=== PATIENT | female | born 1960 | race Caucasian/White ===

== ENCOUNTER → 2022-11-27 | Outpatient (CLI) | payer OTHER ==
[~2022-11-27] MED LIST: AMIT75 PO; CYCL10 PO; IBUP600 PO; TRAM50 PO
[2022-12-01 15:11] LABS: HPV 16 Negative (Negative); HPV 18 Negative (Negative); HPV OTHER HR TYPES Negative (Negative)
== END ==
LOC: LAB SHORT 17:44
PROVIDERS: Advanced Practice Midwife
DX: Z01.419 Encounter for gynecological examination (general) (routine) without abnormal findings (principal)
CPT/HCPCS: 87624; G0145

== ENCOUNTER 2024-04-04 09:11 | Day surgery (SDC) | payer OTHER ==
[~2024-04-04] VITALS: Ht 162.6 cm; Wt 63.0 kg
[2024-04-04] VITALS (8 sets, daily range): BP systolic 117–152; BP diastolic 76–97
[~2024-04-04 09:11] MED LIST changes: +ALBU90OI INH; +ASPI81CH PO; +Chantix1 MG PO; +Crestor40 MG PO; +LASIX20 M2 PO; +LOSA50 PO; +METF500 PO; +POTA10T PO
[2024-04-04] MEDS ORDERED: Heparin Sodium 1000 Units/ML 10ML MDV ONE ×2 (09:12→09:56)
[2024-04-04] MEDS ORDERED: NS 500 ML IV ONE (09:12)
[2024-04-04] MEDS ORDERED: NS 1,000 ML IV ONE ×2 (09:12→09:56)
[2024-04-04] MEDS ORDERED: Nitroglycerin 2 MG/20 ML BTL ONE (09:53)
[2024-04-04] MEDS ORDERED: FentaNYL Citrate 50 MCG/ML 2 ML Injection ONE (10:00)
[2024-04-04] MEDS ORDERED: Midazolam HCl 1MG / ML 2ML Vial ONE (10:00)
[2024-04-04] MEDS ORDERED: CLOP75 PO (11:58)
--- NOTE | 2024-04-04 12:00 | NUR ---
NEW PRESCRIPTION CALLED INTO [facility] FOR PLAVIX 75MG PO DAILY, #30. NO REFILLS PER DR YADAV.
--- NOTE | 2024-04-04 13:20 | NUR ---
PT AMBULATES TO RESTROOM AND BACK WITHOUT DIFF. PT L FEMORAL SITE REMAINS C/D/I. NO BLEEDING OR HEMATOMA NOTED. VSS. PT VERBALIZES UNDERSTANDING WRITTEN AND VERBAL INSTRUCTIONS. DENIES QUESTIONS. PT IV DC'D. CATH INTACT. PRESSURE DSG APPLIED. PT DC TO HOME VIA WC BY FAMILY.
== END 2024-04-04 13:20 | disposition home or self-care (01) ==
LOC: MHTC 09:11
DX: E11.51 Type 2 diabetes mellitus with diabetic peripheral angiopathy without gangrene (principal); I70.223 Atherosclerosis of native arteries of extremities with rest pain, bilateral legs; I10 Essential (primary) hypertension; E78.5 Hyperlipidemia, unspecified; J44.9 Chronic obstructive pulmonary disease, unspecified; F17.210 Nicotine dependence, cigarettes, uncomplicated; Z88.2 Allergy status to sulfonamides; Z79.82 Long term (current) use of aspirin; Z79.899 Other long term (current) drug therapy
CPT/HCPCS: 37221; 37223; 37224; 75625; 75716; 75774; 76937; 99152; 99153; C1760; C1769; C1876; C1887; C1894; J1644; J2250; J3010; J7030; J7050; Q9967

== ENCOUNTER 2024-11-08 05:46 | Day surgery (SDC) | payer OTHER ==
[~2024-11-08 05:46] MED LIST changes: +ALBUTEROL INH; +AMITRIPTYLINE150 M6 PO; +ASPIR 8181 M1 PO; +ATORVASTATIN CA80 M1 PO; +BUDESONIDE INH; +CLOP75 PO; +COREG25 MG PO; +FURO20 PO; +Glucophage 500 mg PO; +KLOR-CON 1010 ME1 PO; +LOSARTAN POTAS100 M1 PO; +OMEP20ER PO; +Proventil HFA 90 mcg INH
[2024-11-08] MEDS ORDERED: Ondansetron HCl 2 MG / ML 2ML Vial ONE (06:21)
[2024-11-08] MEDS ORDERED: Dexamethasone Sod Phos 10 MG/ML 1ML VIAL ONE (06:21)
[2024-11-08] MEDS ORDERED: Ketorolac Tromethamine 30mg Vial ONE (06:21)
[2024-11-08] MEDS ORDERED: propofoL 0 ML IV ONE (06:21)
[2024-11-08] MEDS ORDERED: Sugammadex Sodium 200 MG/2ML SDV (100 MG/ML) ONE (06:21)
[2024-11-08] MEDS ORDERED: FentaNYL Citrate 50 MCG/ML 5 ML Injection ONE (06:21)
[2024-11-08] MEDS ORDERED: NS 250 ML IV SCH (07:00)
[2024-11-08 08:53] VITALS: BP 138/67
[2024-11-08 09:12] VITALS: BP 138/68
[2024-11-08 10:12] VITALS: BP 156/68
[2024-11-08 10:49] VITALS: BP 156/60
== END 2024-11-08 10:53 | disposition home or self-care (01) ==
LOC: ATC 05:46
DX: D64.9 Anemia, unspecified (principal); I12.0 Hypertensive chronic kidney disease with stage 5 chronic kidney disease or end stage renal disease; E11.22 Type 2 diabetes mellitus with diabetic chronic kidney disease; N18.6 End stage renal disease; I25.10 Atherosclerotic heart disease of native coronary artery without angina pectoris; J44.9 Chronic obstructive pulmonary disease, unspecified; E78.5 Hyperlipidemia, unspecified; K21.9 Gastro-esophageal reflux disease without esophagitis; F17.210 Nicotine dependence, cigarettes, uncomplicated; Z88.0 Allergy status to penicillin; Z88.2 Allergy status to sulfonamides; Z79.82 Long term (current) use of aspirin; Z79.02 Long term (current) use of antithrombotics/antiplatelets; Z79.84 Long term (current) use of oral hypoglycemic drugs; Z79.899 Other long term (current) drug therapy
CPT/HCPCS: 36415; 36430; 86850; 86900; 86901; 86923; J1100; J1885; J2405; J2704; J3010; J7050; P9016

== ENCOUNTER 2024-11-10 03:44 | Emergency (ER) | payer OTHER ==
[~2024-11-10] VITALS: Ht 162.6 cm; Wt 58.1 kg
[2024-11-10 04:05] LABS: BASOPHILS ABSOLUTE AUTO 0.05 K/mm3 (0.00-0.23); BASOPHILS PERCENT AUTO 1 % (0-2); EOSINOPHILS ABSOLUTE AUTO 0.07 K/mm3 (0.00-0.68); EOSINOPHILS PERCENT AUTO 1 % (0-6); Hematocrit 24.2 % (33.0-51.0); Hemoglobin 8.2 g/dL (11.5-16.0); IMMATURE GRAN ABSOLUTE AUTO 0.03 K/mm3 (0.00-0.10); IMMATURE GRAN PERCENT AUTO 0 % (0-1); LYMPHOCYTES ABSOLUTE AUTO 0.85 K/mm3 (0.84-5.20); LYMPHOCYTES PERCENT AUTO 11 % (21-46); MONOCYTES ABSOLUTE AUTO 0.58 K/mm3 (0.16-1.47); MONOCYTES PERCENT AUTO 8 % (4-13); Mean Corpuscular HGB 30.5 pg (26.0-34.0); Mean Corpuscular HGB Conc 33.9 g/dL (31.5-36.5); Mean Corpuscular Volume 90 fL (80-100); Mean Platelet Volume 10.2 fL (9.1-12.4); NEUTROPHILS ABSOLUTE AUTO 6.09 K/mm3 (1.96-9.15); NEUTROPHILS PERCENT AUTO 79 % (41-73); Platelet Count 114 K/mm3 (150-400); RDW Coefficient Variation 13.3 % (11.7-14.2); RDW Standard Deviation 43.8 fL (35.1-46.3); Red Blood Cell Count 2.69 M/mm3 (3.80-5.20); White Blood Cell Count 7.67 K/mm3 (4.00-11.30)
[2024-11-10 04:22] LABS: Alanine Aminotransfer (ALT/SGP 55 U/L (12-78); Albumin, Blood 2.5 g/dL (3.4-5.0); Albumin/Globulin Ratio 0.6 (0.8-1.8); Alk Phos 163 U/L (50-136); Anion Gap 10 mmol/L (3-11); Aspartate Aminotrans (AST/SGOT 25 U/L (12-37); Bilirubin, Total 0.6 mg/dL (0.1-1.0); Blood Urea Nitrogen 23 mg/dL (8-24); CO2, Blood 29 mmol/L (21-32); Calcium, Blood 8.9 mg/dL (8.5-10.1); Chloride, Blood 97 mmol/L (98-108); Creatinine, Blood 3.29 mg/dL (0.40-1.00); Globulin, Blood 4.4 g/dL (2.2-4.0); Glomerular Filtration Rate 15 (60-); Glucose, Blood 408 mg/dL (70-99); Potassium, Blood 3.6 mmol/L (3.5-5.5); Sodium, Blood 132 mmol/L (136-145); Total Protein, Blood 6.9 g/dL (6.4-8.2)
[2024-11-10] MEDS ORDERED: Metoclopramide HCl 5MG / ML 2ML Vial IV ONE (04:25)
[2024-11-10] MEDS ORDERED: Mag Hydrox/AL Hydrox/Simeth 30 ML UDC PO ONE (04:25)
[2024-11-10] MEDS ORDERED: FentaNYL Citrate 50 MCG/ML 2 ML Injection IV PRN (04:25)
[2024-11-10 05:33] LABS: CORONAVIRUS COVID-19 AG Negative (NEGATIVE); INFLUENZA A AG Negative (NEGATIVE); INFLUENZA B AG Negative (NEGATIVE)
[2024-11-10] MEDS ORDERED: ALMACONE SUSPE355 ML PO (06:08)
[2024-11-10 06:30] VITALS: BP 154/78
[2024-11-15] MEDS ORDERED: Calcium Acetat667 MG PO (15:03)
== END 2024-11-10 06:39 | disposition home or self-care (01) ==
LOC: ER 03:44
PROVIDERS: Emergency Medicine
DX: K21.9 Gastro-esophageal reflux disease without esophagitis (principal); I10 Essential (primary) hypertension; E11.51 Type 2 diabetes mellitus with diabetic peripheral angiopathy without gangrene; E78.5 Hyperlipidemia, unspecified; J44.9 Chronic obstructive pulmonary disease, unspecified; Z88.0 Allergy status to penicillin; Z88.2 Allergy status to sulfonamides; Z79.899 Other long term (current) drug therapy
CPT/HCPCS: 71046; 80053; 83690; 84484; 85025; 87428-QW; 93005; 93010; 96374; 96375; 99285-25; A9270; J2765; J3010

== ENCOUNTER 2024-11-20 19:37 | Inpatient (IN) | payer OTHER ==
[~2024-11-20] VITALS: Ht 162.6 cm; Wt 65.5 kg
[~2024-11-20 19:37] MED LIST changes: +ALMACONE SUSPE355 ML PO; +BASAGLAR K100 UNIT/4 SC; +Calcium Acetat667 MG PO; +HUMULIN R500 UNIT/2 SC; +PANTOPRAZOLE SO40 M1 PO
[2024-11-20 20:33] LABS: Glucose, Blood 924 mg/dL (70-99)
[2024-11-20 20:59] LABS: BASOPHILS ABSOLUTE AUTO 0.04 K/mm3 (0.00-0.23); BASOPHILS PERCENT AUTO 0 % (0-2); EOSINOPHILS ABSOLUTE AUTO 0.03 K/mm3 (0.00-0.68); EOSINOPHILS PERCENT AUTO 0 % (0-6); Hemoglobin 8.4 g/dL (11.5-16.0); IMMATURE GRAN ABSOLUTE AUTO 0.17 K/mm3 (0.00-0.10); IMMATURE GRAN PERCENT AUTO 2 % (0-1); LYMPHOCYTES ABSOLUTE AUTO 0.68 K/mm3 (0.84-5.20); LYMPHOCYTES PERCENT AUTO 7 % (21-46); MONOCYTES ABSOLUTE AUTO 0.39 K/mm3 (0.16-1.47); MONOCYTES PERCENT AUTO 4 % (4-13); Mean Corpuscular HGB 29.7 pg (26.0-34.0); Mean Corpuscular HGB Conc 32.3 g/dL (31.5-36.5); Mean Corpuscular Volume 92 fL (80-100); Mean Platelet Volume 12.7 fL (9.1-12.4); NEUTROPHILS ABSOLUTE AUTO 8.67 K/mm3 (1.96-9.15); NEUTROPHILS PERCENT AUTO 87 % (41-73); Platelet Count 72 K/mm3 (150-400); RDW Coefficient Variation 14.5 % (11.7-14.2); Red Blood Cell Count 2.83 M/mm3 (3.80-5.20); White Blood Cell Count 9.98 K/mm3 (4.00-11.30)
[2024-11-20 21:06] LABS: Magnesium, Blood 1.5 mg/dL (1.6-2.4)
[2024-11-20 21:17] LABS: CORONAVIRUS COVID-19 AG Negative (NEGATIVE); INFLUENZA A AG Negative (NEGATIVE); INFLUENZA B AG Negative (NEGATIVE)
[2024-11-20 21:27] LABS: Alanine Aminotransfer (ALT/SGP 42 U/L (12-78); Albumin, Blood 1.8 g/dL (3.4-5.0); Albumin/Globulin Ratio 0.4 (0.8-1.8); Alk Phos 203 U/L (50-136); Anion Gap 19 mmol/L (3-11); Aspartate Aminotrans (AST/SGOT 24 U/L (12-37); Beta-hydroxybutyrate 20.4 mg/dL (0.2-2.8); Bilirubin, Total 0.5 mg/dL (0.1-1.0); Blood Urea Nitrogen 37 mg/dL (8-24); Bun/Creatinine Ratio 16.7 (12.0-20.0); CO2, Blood 20 mmol/L (21-32); Chloride, Blood 87 mmol/L (98-108); Creatinine, Blood 2.22 mg/dL (0.40-1.00); Globulin, Blood 4.6 g/dL (2.2-4.0); Glomerular Filtration Rate 24 (60-); Potassium, Blood 3.6 mmol/L (3.5-5.5); Sodium, Blood 122 mmol/L (136-145); Total Protein, Blood 6.4 g/dL (6.4-8.2)
[2024-11-20 21:34] LABS: Source, Urine Clean Catch
[2024-11-20 21:36] LABS: Bilirubin, Urine Neg (Neg); Blood, Urine 1+ (Neg); Glucose Qualitative, Urine 4+ (Neg); Ketones, Urine 1+ (Neg); Leukocyte Esterase, Urine Neg (Neg); Nitrite, Urine Neg (Neg); Protein, Urine 2+ (Neg); Urobilinogen, Urine NORM (Normal); pH, Urine 6.5 (5.0-8.0)
[2024-11-20 21:47] LABS: Appearance, Urine Clear (Clear); Bacteria Not Seen /hpf; Color, Urine Yellow (P-Yellow); Red Blood Cells, Urine 0-2 /hpf (0-2); Squamous Epithelial Cells Not Seen /hpf (Few); White Blood Cells, Urine 0-2 /hpf (0-5)
[2024-11-20] MEDS ORDERED: METF500 (21:49)
[2024-11-20] MEDS ORDERED: FUROSEMIDE20 MG PO (21:50)
[2024-11-20] MEDS ORDERED: LOSA25 PO (21:50)
[2024-11-20] MEDS ORDERED: Insulin Regular 100 Unit/ML 1ML Dose IV ONE (21:55)
[2024-11-20 22:08] LABS: Base Excess Venous -6.4 mmol/L; Bicarbonate Venous 19.7 mmol/L (24.0-30.0); pH Blood Venous 7.42 (7.34-7.37)
[2024-11-20] MEDS ORDERED: Lactated Ringer's 250 ML IV SCH (22:20)
[2024-11-20 23:41] LABS: Bun/Creatinine Ratio 16.2 (12.0-20.0); Calcium, Blood 8.1 mg/dL (8.5-10.1); Creatinine, Blood 2.28 mg/dL (0.40-1.00); Potassium, Blood 3.3 mmol/L (3.5-5.5)
[2024-11-20] MEDS ORDERED: Insulin Human Regular 100 UNIT in NS 100 ML IV SCH (23:45)
[2024-11-20] MEDS ORDERED: Potassium Chloride 40 MEQ in NS 250 ML IV ONE (23:45)
[2024-11-20] MEDS ORDERED: NS KCL 40 mEq 1,000 ML IV SCH (23:50)
[2024-11-21] VITALS (48 sets, daily range): BP systolic 70–136; BP diastolic 51–99
[2024-11-21] MEDS ORDERED: NS 1,000 ML IV SCH (00:10)
[2024-11-21] MEDS ORDERED: Magnesium Sulf 2 GM/Water 50ML 50 ML IV ONE (00:15)
[2024-11-21] MEDS ORDERED: FLU VACC TS2024-25(6MOS UP)/PF 45 MCG/0.5 ML SYRINGE IM ONE (00:20)
[2024-11-21] MEDS ORDERED: Lactated Ringer's 250 ML IV SCH (00:20)
[2024-11-21] MEDS ORDERED: Ondansetron HCl 2 MG / ML 2ML Vial IV PRN (00:20)
[2024-11-21] MEDS ORDERED: Acetaminophen 325 MG TABLET PO PRN (00:20)
[2024-11-21] MEDS ORDERED: Dextrose 50% 50 ML Syringe IV PRN (00:25)
[2024-11-21] MEDS ORDERED: Dextrose 50% 50 ML Vial IV PRN (00:35)
[2024-11-21] MEDS ORDERED: Lactated Ringer's 1,000 ML IV SCH ×2 (01:00→01:45)
[2024-11-21 02:37] LABS: Magnesium, Blood 1.7 mg/dL (1.6-2.4)
[2024-11-21 02:40] LABS: Calcium, Blood 8.2 mg/dL (8.5-10.1); Creatinine, Blood 2.23 mg/dL (0.40-1.00); Phosphorus, Blood 2.8 mg/dL (2.5-4.9); Potassium, Blood 3.5 mmol/L (3.5-5.5)
[2024-11-21] MEDS ORDERED: Insulin Human Regular 100 UNIT in NS 100 ML IV SCH (03:05)
--- NOTE | 2024-11-21 03:28 | NUR ---
ARRIVAL TO ICU PT ARRIVED TO ICU 2 AT 0145 VIA ED BED AND TRANSFERED OVER TO ICU BED VIA SLIDE SHEET. SHE IS BEING ADMITTED FOR DKA AND TO BE PLACED ON AN INSULIN GTT ONCE POTASSIUM IS IMPROVED. SHE IS A/O X1, SELF ONLY; OPENS EYES TO VERBAL STIMULATION AND FOLLOWS DIRECTIONS BUT ONLY ANSWERS Y/N QUESTIONS OCCATIONALLY; SLEEPS WHEN NOT STIMULATED. SPO2 >95% ON RA. AFEBRILE. HR 100-105. SBP 110-120. STRAIGHT CATH COMPLETED IN ED. PERMACATH NOTED TO RT CHEST WALL; UNKNOWN WHEN LAST DIALYSIS WAS. POTASSIUM AND MAG INFUSING UPON ARRIVAL TO ICU. CALL MADE TO DR LANGE REGARDING REPEAT LABS, NEW ORDERS PROVIDED TO START INSULIN GTT. GTT STARTED AT 0320. PLAN TO RESTART LR AT 75ML/HR AFTER KCL COMPLETED. SEE ADMISSION ASSESSMENT FOR FULL ASSESSMENT.
[2024-11-21 04:59] LABS: Glucose, Blood 751 mg/dL (70-99)
[2024-11-21] MEDS ORDERED: Pantoprazole Sodium 40 MG Tab PO SCH (06:00)
[2024-11-21 06:03] LABS: Glucose, Blood 703 mg/dL (70-99)
--- NOTE | 2024-11-21 06:37 | NUR ---
END OF SHIFT SUMMARY INSULIN GTT STARTED AND GLUCOSE IS SLOWLY DECREASING; INSULIN INFUSING AT 6UNITS/HR. SHE IS STARTING TO BECOME MORE ALERT AND ASKING QUESTIONS LIKE "HOW DID I GET HERE?" AND "I HAVE DIALYSIS TODAY"; SHE STATES THAT DIALYSIS IS TUE/DEWAYNE/SAT; SHE CONT TO BE UNCLEAR REGARDING THE EVENTS THAT BROUGHT HER TO THE HOSPITAL. SPO2 >95% ON RA. AFEBRILE. HR 90-100. SBP 100-110. TOLERATING SIPTS OF WATER, NO C/O NAUSEA. BLADDER SCAN SHOWED >999+, STRAIGHT CATH PERFORMED AND DRAINING A LARGE AMOUNT OF URINE. LR INFUSING AT 75ML/HR. WILL REPORT TO AM RN WHEN AVAILABLE.
[2024-11-21 07:12] LABS: Bun/Creatinine Ratio 17.1 (12.0-20.0); Calcium, Blood 8.3 mg/dL (8.5-10.1); Creatinine, Blood 2.22 mg/dL (0.40-1.00); Potassium, Blood 3.6 mmol/L (3.5-5.5)
[2024-11-21 07:14] LABS: Glucose, Blood 614 mg/dL (70-99)
[2024-11-21 07:15] LABS: Magnesium, Blood 1.9 mg/dL (1.6-2.4); Phosphorus, Blood 1.8 mg/dL (2.5-4.9)
[2024-11-21] MEDS ORDERED: Carvedilol 6.25 MG Tab PO SCH (08:00)
[2024-11-21 08:01] LABS: Glucose, Blood 572 mg/dL (70-99)
[2024-11-21] MEDS ORDERED: Potassium Chloride 20 MEQ in NS 90 ML IV ONE (08:25)
--- NOTE | 2024-11-21 08:25 | NUR ---
AM NOTE... ASSUMED CARE OF PT AT 0700, PT IS A&O TO SELF AND PLACE, PT IS ABLE TO FOLLOW SIMPLE COMMANDS BUT FALLS ASLEEP QUICKLY WITH NO STIMULI. PT IS ON RA WITH O2 SATS>95% L/S CLEAR T/O. PT IS IN SR W/FIRST DEGREE IN THE 80'S-90'S BP IS SOFT WITH SPBs 90'S-80'S MAPS>65. PT HAS 1+ EDEMA TO HER RLE AND TRACE TO HER LLE. PULSES ARE +2 IN ALL EXTREMITIES. PT IS ON AN INSULIN GTT RUNNING AT 6U/HR LAST GLUCOSE WAS 572. LR RUNNING AT 75MLS/HR.
[2024-11-21] MEDS ORDERED: Potassium Chloride 40 MEQ in NS 250 ML IV ONE (08:30)
[2024-11-21] MEDS ORDERED: Magnesium Sulf 2 GM/Water 50ML 50 ML IV STA (08:34)
[2024-11-21] MEDS ORDERED: Clopidogrel Bisulfate 75 MG Tab PO SCH (09:00)
[2024-11-21] MEDS ORDERED: Aspirin 81 MG Chew PO SCH (09:00)
[2024-11-21] MEDS ORDERED: Rosuvastatin Calcium 10 MG Tab PO SCH (09:00)
[2024-11-21] MEDS ORDERED: Heparin Sodium 5000 Units/ML 1ML MDV SC SCH (09:00)
[2024-11-21] MEDS ORDERED: Albumin (Human) 25gm/100ml 100 ML IV SCH (10:15)
[2024-11-21] MEDS ORDERED: D5W-1/2NS 1,000 ML IV SCH (12:00)
[2024-11-21 13:00] LABS: Bun/Creatinine Ratio 14.9 (12.0-20.0); Calcium, Blood 9.2 mg/dL (8.5-10.1); Creatinine, Blood 1.14 mg/dL (0.40-1.00); Potassium, Blood 3.7 mmol/L (3.5-5.5)
[2024-11-21] MEDS ORDERED: Insulin Glargine-Yfgn 100 Unit/mL 3 ML SYR SC ONE (15:15)
[2024-11-21] MEDS ORDERED: Darbepoetin Alfa in Polysorbat 25 MCG/0.42 ML Syringe SC ONE (16:00)
[2024-11-21 16:08] LABS: Bun/Creatinine Ratio 13.7 (12.0-20.0); Calcium, Blood 8.9 mg/dL (8.5-10.1); Creatinine, Blood 1.39 mg/dL (0.40-1.00); Potassium, Blood 3.8 mmol/L (3.5-5.5)
[2024-11-21] MEDS ORDERED: Insulin Human Lispro 100 Units/ML 3ML Syringe SC SCH (16:30)
--- NOTE | 2024-11-21 17:39 | NUR ---
SHIFT SUMMARY... PT'S MENTATION HAS IMPROVED T/O THIS SHIFT. SHE STILL HAS MOMENTS OF CONFUSION BUT IS ABLE TO ANSWER ALL ORIENTATION QUESTIONS. PT HAD DIALYSIS THIS AM AND TOLERATED IT WELL. VS HAVE BEEN STABLE T/O THIS SHIFT BP CONTINUES TO BE SOFT BUT MAPS>65. THE INSULIN GTT WAS STOPPED AT 1730, LONG ACTING AND SUB Q WERE GIVEN PER ORDERS. PROVIDER WOULD LIKE TO CONTINUE TO CHECK HOURLY CBGs TO ENSURE GLUCOSE DOES NOT GET OUT OF CONTROL T/O THE NIGHT. ALL FULIDS STOPPED. PT'S WEINER IS PATENT AND DRAINING TO GRAVITY URINARY OUTPUT HAS DECREASED SINCE DIALYSIS. NO BM THIS SHIFT. WILL REPORT TO ONCOMING RN.
--- NOTE | 2024-11-21 17:43 | NUR ---
FAMILY PHONE NUMBERS... SON BRUNA (ESTELITA): [phone] SON GODFREY: [phone]
[2024-11-21 20:50] LABS: Bun/Creatinine Ratio 13.2 (12.0-20.0); Calcium, Blood 8.7 mg/dL (8.5-10.1); Creatinine, Blood 1.51 mg/dL (0.40-1.00); Potassium, Blood 4.2 mmol/L (3.5-5.5)
[2024-11-21] MEDS ORDERED: Insulin Human Lispro 100 Units/ML 3ML Syringe SC ONE (22:25)
[2024-11-22] VITALS (30 sets, daily range): BP systolic 77–148; BP diastolic 49–102
[2024-11-22 00:34] LABS: Bun/Creatinine Ratio 12.8 (12.0-20.0); Calcium, Blood 8.3 mg/dL (8.5-10.1); Creatinine, Blood 1.56 mg/dL (0.40-1.00); Potassium, Blood 3.9 mmol/L (3.5-5.5)
[2024-11-22] MEDS ORDERED: Insulin Glargine-Yfgn 100 Unit/mL 3 ML SYR SC SCH ×3 (00:55→21:00)
[2024-11-22 03:53] LABS: Hematocrit 24.2 % (33.0-51.0); Hemoglobin 8.2 g/dL (11.5-16.0)
[2024-11-22 04:15] LABS: Albumin, Blood 2.5 g/dL (3.4-5.0); Anion Gap 12 mmol/L (3-11); Blood Urea Nitrogen 21 mg/dL (8-24); Bun/Creatinine Ratio 12.7 (12.0-20.0); CO2, Blood 26 mmol/L (21-32); Calcium, Blood 8.5 mg/dL (8.5-10.1); Chloride, Blood 96 mmol/L (98-108); Creatinine, Blood 1.66 mg/dL (0.40-1.00); Glomerular Filtration Rate 34 (60-); Glucose, Blood 277 mg/dL (70-99); Magnesium, Blood 1.7 mg/dL (1.6-2.4); Phosphorus, Blood 1.5 mg/dL (2.5-4.9); Potassium, Blood 4.3 mmol/L (3.5-5.5); Sodium, Blood 130 mmol/L (136-145)
--- NOTE | 2024-11-22 06:03 | NUR ---
END OF SHIFT SUMMARY PT WAS ABLE TO SLEEP A BETTER PART OF THE NIGHT. GLUCOSE CHALLENGING TO MANAGE; FIRST CALL MADE TO HOSPITALIST GEMA REGARDING GLUCOSE 313, ONE TIME ORDER TO GIVE ADDITIONAL DOSE OF HUMALOG; SECOND CALL MADE TO DR LANGE REGARDING GLUCOSE OF 312 AFTER PREVIOUS INSULIN GIVEN, ONE TIME ADDITIONAL DOSE OF LONG ACTING INSULIN GIVEN. SHE IS A/O X3; AT TIMES CONFUSED REGARDING WHAT HAPPENED THAT LEAD HER TO BE HOSPITALIZED. C/O MILD BACK PAIN. AFEBRILE. SPO2 >98% ON RA. HR 100-110. SBP 110-130. TOLERATING PO INTAKE WELL. WEINER IN PLACE AND DRAINING TO GRAVITY. PERMACATH TO RT CHEST WALL DRESSING C/D/I. WILL REPORT TO AM RN WHEN AVAILABLE.
[2024-11-22] MEDS ORDERED: Sodium Phosphate 20 MM in Dextrose 5% 500 ML IV ONE (07:15)
--- NOTE | 2024-11-22 07:40 | NUR ---
Peytona of care: Resting in bed with no complaints. Neuro intact. In ST at 105 with BP 133/55 (79). Oxygen saturation 100% on room air. No plans for HD today per Dr. Olsen. Ruddy cath secure & patent, in place for retention. PIV x2 & R SC permcath. Will continue to monitor.
[2024-11-22 08:24] LABS: Bun/Creatinine Ratio 11.9 (12.0-20.0); Calcium, Blood 8.2 mg/dL (8.5-10.1); Creatinine, Blood 1.68 mg/dL (0.40-1.00)
[2024-11-22] MEDS ORDERED: TraMADol HCl 50 MG Tab PO PRN (09:30)
[2024-11-22] MEDS ORDERED: Insulin Human Lispro 100 Units/ML 3ML Syringe SC SCH (11:30)
[2024-11-22 11:54] LABS: Bun/Creatinine Ratio 12.7 (12.0-20.0); Creatinine, Blood 1.73 mg/dL (0.40-1.00)
[2024-11-22] MEDS ORDERED: Dextrose 50% 50 ML Vial IV PRN (12:15)
[2024-11-22] MEDS ORDERED: Insulin Regular 100 UNIT/ML 10ML Vial IV ONE (12:15)
[2024-11-22] MEDS ORDERED: Insulin Human Regular 100 UNIT in NS 100 ML IV SCH (12:20)
[2024-11-22] MEDS ORDERED: Dextrose 10% 500 ML IV SCH (12:30)
[2024-11-22 12:56] LABS: Base Excess Venous 1.3 mmol/L; Bicarbonate Venous 25.2 mmol/L (24.0-30.0); PCO2 Venous 43.3 mmHg (38-42); pH Blood Venous 7.39 (7.34-7.37)
[2024-11-22 13:37] LABS: Bun/Creatinine Ratio 12.7 (12.0-20.0); Calcium, Blood 7.9 mg/dL (8.5-10.1); Creatinine, Blood 1.81 mg/dL (0.40-1.00); Magnesium, Blood 1.6 mg/dL (1.6-2.4); Phosphorus, Blood 3.7 mg/dL (2.5-4.9); Potassium, Blood 3.7 mmol/L (3.5-5.5)
--- NOTE | 2024-11-22 13:40 | NUR ---
Patient is sitting on a chair and eating lunch. She tells me earl few minutes during my visit that she is "so confused." She is able to discuss most any topic but she is slow to respond. She tells me about her 5 grown children. All but one son live in other states. She is talks about the good care she has received in the ICU and she thinks that she was in the hospital recently for another reason and had good care then as well. She is easily encouraged and appreciates kind words and blessings. Spiritual care will remain available.
[2024-11-22 17:12] LABS: Bun/Creatinine Ratio 12.6 (12.0-20.0); Calcium, Blood 7.8 mg/dL (8.5-10.1); Creatinine, Blood 1.91 mg/dL (0.40-1.00); Magnesium, Blood 1.7 mg/dL (1.6-2.4); Phosphorus, Blood 2.7 mg/dL (2.5-4.9); Potassium, Blood 3.6 mmol/L (3.5-5.5)
--- NOTE | 2024-11-22 17:37 | NUR ---
Shift summary: Oriented x3 but unsure of situation. Drowsy & slept much of afternoon. Awake & alert again for dinner. OOB to chair for a couple of hours -- very weak returning to bed, required two person assist. NSR in the 80s with 1st degree AVB. Blood pressures low after receiving this morning's dose of coreg - discussed with Dr. Fischer - evening dose of coreg held but blood pressures still soft. O2 sats stable on room air. Insulin gtt restarted early afternoon due to worsening labs... currently running at 1 unit/hr. D10 gtt also started - running at 25 mL/hr. PIV x2 in place. Fox discontinued around 10:30, most recent bladder scan at 1700 with only 131 cc in bladder, will continue to monitor. Encouraging PO intake & range of motion. Hot Mix Operator following. Notified Dr. Fischer of most recent serum potassium of 3.6 - he states he will order some replacement. Will continue q1h blood glucose checks & follow insulin gtt protocol. Son, daughter, & mother all updated today on plan of care.
[2024-11-22] MEDS ORDERED: Potassium Chloride 20 MEQ/15 ML UDC PO ONE (18:05)
[2024-11-22] MEDS ORDERED: Lactated Ringer's 1,000 ML IV SCH (18:05)
[2024-11-22 20:43] LABS: Bun/Creatinine Ratio 12.9 (12.0-20.0); Calcium, Blood 8.3 mg/dL (8.5-10.1); Creatinine, Blood 2.02 mg/dL (0.40-1.00); Magnesium, Blood 1.7 mg/dL (1.6-2.4); Phosphorus, Blood 2.8 mg/dL (2.5-4.9); Potassium, Blood 4.8 mmol/L (3.5-5.5)
--- NOTE | 2024-11-22 22:27 | NUR ---
ASSUMED CARE AT 1900 PT LAYING IN BED WATCHING TV AT SHIFT CHANGE. SHE IS MORE ALERT THAN PREVIOUS DAY; ORIENTED X3, NOT TO SITUATION; GENERALIZED WEAKNESS NOTED. SPO2 >97% ON RA. AFEBRILE. HR 90'S. SBP 90'S; MAP 60-65. TOLERATING PO INTAKE. WEINER REMOVED DURING DAY SHIFT; NO URINE OUTPUT YET. PERMACATH TO RT CHEST WALL DRESSING C/D/I. INSULIN INFUSING AT 1UNIT/HR; LR INFUSING AT 75ML/HR; D10 INFUSING AT 25ML/HR. SEE SHIFT ASSESSMENT FOR FULL ASSESSMENT.
[2024-11-23] VITALS (40 sets, daily range): BP systolic 75–123; BP diastolic 50–87
[2024-11-23 01:04] LABS: Bun/Creatinine Ratio 13.6 (12.0-20.0); Calcium, Blood 8.2 mg/dL (8.5-10.1); Creatinine, Blood 1.99 mg/dL (0.40-1.00); Magnesium, Blood 1.5 mg/dL (1.6-2.4); Phosphorus, Blood 2.6 mg/dL (2.5-4.9); Potassium, Blood 4.3 mmol/L (3.5-5.5)
[2024-11-23 04:56] LABS: Hematocrit 21.2 % (33.0-51.0); Hemoglobin 7.3 g/dL (11.5-16.0)
[2024-11-23 05:42] LABS: Anion Gap 14 mmol/L (3-11); Blood Urea Nitrogen 26 mg/dL (8-24); Bun/Creatinine Ratio 13.8 (12.0-20.0); CO2, Blood 23 mmol/L (21-32); Chloride, Blood 93 mmol/L (98-108); Creatinine, Blood 1.88 mg/dL (0.40-1.00); Glomerular Filtration Rate 30 (60-); Glucose, Blood 296 mg/dL (70-99); Magnesium, Blood 1.5 mg/dL (1.6-2.4); Phosphorus, Blood 2.6 mg/dL (2.5-4.9); Potassium, Blood 4.4 mmol/L (3.5-5.5); Sodium, Blood 126 mmol/L (136-145)
[2024-11-23] MEDS ORDERED: Mag Sulfate 1 GM/D5% 100ML 100 ML IV STA (05:54)
--- NOTE | 2024-11-23 06:47 | NUR ---
END OF SHIFT SUMMARY NO ACUTE EVENTS OVERNIGHT; SHE WAS ABLE TO SLEEP FOR A FEW HOURS. SHE CONT TO BE A/O X3. ONE DOSE OF ULTRAM GIVEN FOR BACK PAIN. AFEBRILE. SPO2 >97% ON RA. HR 90'S. SBP 80-100. BLADDER SCAN COMPLETED AND SHOWED 293ML. INSULIN INFUSING AT 1.5UNITS/HR; D10 INFUSING AT 25ML/HR; LR INFUSING AT 75ML/HR. PERMACATH TO RT CHEST WALL DRESSING C/D/I. WILL REPORT TO AM RN WHEN AVAILABLE.
--- NOTE | 2024-11-23 07:56 | NUR ---
Karnes of care: Oriented to person, place, time. Unsure of the reason why she is in the hospital. Able to transfer to the chair with two-person assist -- very weak. In NSR in the 90s. SBP 90-100. Oxygen saturation mid-high 90s on room air. Poor appetite. Has not voided since yesterday -- will continue to bladder scan per protocol. PIV x2 in place. Insulin gtt @ 1.5 units/hr, LR @ 75 cc/hr, & D10 @ 25 cc/hr infusing. Will continue to monitor.
[2024-11-23 08:32] LABS: Hematocrit 21.1 % (33.0-51.0); Hemoglobin 7.2 g/dL (11.5-16.0); Mean Corpuscular HGB 29.8 pg (26.0-34.0); Mean Corpuscular HGB Conc 34.1 g/dL (31.5-36.5); Mean Platelet Volume 12.6 fL (9.1-12.4); Platelet Count 86 K/mm3 (150-400); RDW Standard Deviation 47.9 fL (35.1-46.3); Red Blood Cell Count 2.42 M/mm3 (3.80-5.20); White Blood Cell Count 13.28 K/mm3 (4.00-11.30)
[2024-11-23 08:47] LABS: Mean Corpuscular Volume 87 fL (80-100)
[2024-11-23 08:52] LABS: Bun/Creatinine Ratio 17.2 (12.0-20.0); Calcium, Blood 8.1 mg/dL (8.5-10.1); Creatinine, Blood 1.57 mg/dL (0.40-1.00); Potassium, Blood 4.4 mmol/L (3.5-5.5)
[2024-11-23] MEDS ORDERED: Furosemide 40 MG Tab PO SCH (09:00)
[2024-11-23 10:05] LABS: BAND PERCENT MAN 8 % (0-8); BASOPHILS PERCENT MAN 0 % (0-2); EOSINOPHILS PERCENT MAN 0 % (0-6); LYMPHOCYTES ABSOLUTE MAN 1.19 K/mm3 (0.84-5.20); LYMPHOCYTES PERCENT MAN 9 % (21-46); MONOCYTES ABSOLUTE MAN 0.39 K/mm3 (0.16-1.47); MONOCYTES PERCENT MAN 3 % (4-13); MYELOCYTE ABSOLUTE MAN 0.13 K/mm3 (0.00-0.00); MYELOCYTE PERCENT MAN 1 % (0-0); NEUTROPHILS ABSOLUTE MAN 11.55 K/mm3 (1.96-9.15); SEG NEUTROPHILS PERCENT MAN 79 % (41-73); TOTAL CELLS COUNTED 100
[2024-11-23 11:58] LABS: Source, Urine Straight Cath
[2024-11-23 12:04] LABS: Appearance, Urine Hazy (Clear); Bilirubin, Urine Neg (Neg); Blood, Urine 1+ (Neg); Color, Urine Yellow (P-Yellow); Glucose Qualitative, Urine Neg (Neg); Ketones, Urine Neg (Neg); Leukocyte Esterase, Urine 1+ (Neg); Nitrite, Urine Pos (Neg); Protein, Urine 3+ (Neg); Urobilinogen, Urine 1+ (Normal); pH, Urine 6.5 (5.0-8.0)
[2024-11-23 12:49] LABS: Red Blood Cells, Urine 0-2 /hpf (0-2)
[2024-11-23 12:50] LABS: Bacteria Many /hpf; Squamous Epithelial Cells Rare /hpf (Few)
[2024-11-23 12:51] LABS: Amorphous Light (0-Heavy)
[2024-11-23 13:04] LABS: Bun/Creatinine Ratio 12.7 (12.0-20.0); Calcium, Blood 8.1 mg/dL (8.5-10.1); Creatinine, Blood 2.2 mg/dL (0.40-1.00); Magnesium, Blood 1.8 mg/dL (1.6-2.4); Phosphorus, Blood 2.7 mg/dL (2.5-4.9); Potassium, Blood 4.2 mmol/L (3.5-5.5)
--- NOTE | 2024-11-23 14:24 | NUR ---
Notified Dr. Fischer of pt's sustained hypotension with MAPs below 65. Also discussed most recent lab results including urinalysis. Orders for 2.5 mg PO midodrine x1 & he states he will place antibiotic orders shortly.
[2024-11-23] MEDS ORDERED: Midodrine 2.5 MG Tab PO ONE (14:25)
[2024-11-23] MEDS ORDERED: CefTRIAXone Sodium 1,000 MG in NS 100 ML IV SCH (15:00)
--- NOTE | 2024-11-23 17:20 | NUR ---
Notified Dr. Fischer of pt's continued hypotension. He is en route.
[2024-11-23 17:22] LABS: Bun/Creatinine Ratio 13.9 (12.0-20.0); Calcium, Blood 7.9 mg/dL (8.5-10.1); Creatinine, Blood 2.31 mg/dL (0.40-1.00); Magnesium, Blood 1.8 mg/dL (1.6-2.4); Phosphorus, Blood 3.1 mg/dL (2.5-4.9); Potassium, Blood 4.3 mmol/L (3.5-5.5)
--- NOTE | 2024-11-23 17:50 | NUR ---
Shift summary: Less drowsy this afternoon. Oriented but states she feels confused & "foggy headed". OOB to chair with two person assist - PT/OT kathleen completed. In NSR with 1st degree AVB. Blood pressures low throughout the day - one dose of PO midodrine given with no effect - norepi gtt ordered if MAP does not sustain above 65. On room air with stable O2 sats. Straight cath x1 due to retention. UA sent which is indicative of UTI - rocephin started. Continues to have poor appetite & minimal PO intake despite encouragement. PIV x2 with insulin gtt infusing at 2.6 units/hr & D10 gtt at 25 cc/hr. Most recent anion gap 14. Continue with insulin gtt protocol per Dr. Fischer. Patient updated on plan of care.
--- NOTE | 2024-11-23 20:16 | NUR ---
ASSUMED CARE AT 1900 PATIENT IS ALERT AND ORIENTED X4, SLOW TO RESPOND AT TIMES. SP02 99% ON RA, DENIES SOB. HR SR FHB AT 86, BP HYPOTENSIVE AT TIMES, WILL START LEVOPHED IF NEEDED TO MAINTAIN MAP >65. WILL BLADDER SCAN 6 HOURS AFTER PREVIOUS IF PATIENT IS STILL UNABLE TO VOID. REPOSITIONED FOR BACK PAIN, WILL MEDICATE PER EMAR PRN. INSULIN AND D10 REMAIN INFUSING. CALL LIGHT IN REACH.
[2024-11-23 21:39] LABS: Bun/Creatinine Ratio 14.2 (12.0-20.0); Calcium, Blood 7.8 mg/dL (8.5-10.1); Creatinine, Blood 2.33 mg/dL (0.40-1.00); Magnesium, Blood 1.6 mg/dL (1.6-2.4); Phosphorus, Blood 3.5 mg/dL (2.5-4.9); Potassium, Blood 4.9 mmol/L (3.5-5.5)
[2024-11-24] VITALS (37 sets, daily range): BP systolic 73–128; BP diastolic 48–99
[2024-11-24 01:33] LABS: Bun/Creatinine Ratio 14.4 (12.0-20.0); Calcium, Blood 7.9 mg/dL (8.5-10.1); Creatinine, Blood 2.36 mg/dL (0.40-1.00); Magnesium, Blood 1.8 mg/dL (1.6-2.4); Phosphorus, Blood 3.4 mg/dL (2.5-4.9); Potassium, Blood 4.4 mmol/L (3.5-5.5)
[2024-11-24 05:11] LABS: BASOPHILS ABSOLUTE AUTO 0.02 K/mm3 (0.00-0.23); BASOPHILS PERCENT AUTO 0 % (0-2); EOSINOPHILS ABSOLUTE AUTO 0.01 K/mm3 (0.00-0.68); EOSINOPHILS PERCENT AUTO 0 % (0-6); Hematocrit 20.3 % (33.0-51.0); IMMATURE GRAN ABSOLUTE AUTO 0.23 K/mm3 (0.00-0.10); IMMATURE GRAN PERCENT AUTO 2 % (0-1); LYMPHOCYTES ABSOLUTE AUTO 1.08 K/mm3 (0.84-5.20); LYMPHOCYTES PERCENT AUTO 9 % (21-46); MONOCYTES ABSOLUTE AUTO 0.72 K/mm3 (0.16-1.47); MONOCYTES PERCENT AUTO 6 % (4-13); Mean Corpuscular HGB 30.2 pg (26.0-34.0); Mean Corpuscular HGB Conc 34.5 g/dL (31.5-36.5); Mean Corpuscular Volume 88 fL (80-100); Mean Platelet Volume 12.7 fL (9.1-12.4); NEUTROPHILS ABSOLUTE AUTO 9.63 K/mm3 (1.96-9.15); NEUTROPHILS PERCENT AUTO 82 % (41-73); Platelet Count 91 K/mm3 (150-400); RDW Coefficient Variation 15.3 % (11.7-14.2); RDW Standard Deviation 48.1 fL (35.1-46.3); Red Blood Cell Count 2.32 M/mm3 (3.80-5.20); White Blood Cell Count 11.69 K/mm3 (4.00-11.30)
[2024-11-24 05:27] LABS: Albumin, Blood 1.9 g/dL (3.4-5.0); Anion Gap 13 mmol/L (3-11); Blood Urea Nitrogen 36 mg/dL (8-24); Bun/Creatinine Ratio 14.9 (12.0-20.0); CO2, Blood 24 mmol/L (21-32); Calcium, Blood 8.2 mg/dL (8.5-10.1); Chloride, Blood 94 mmol/L (98-108); Creatinine, Blood 2.42 mg/dL (0.40-1.00); Glomerular Filtration Rate 22 (60-); Glucose, Blood 165 mg/dL (70-99); Magnesium, Blood 1.7 mg/dL (1.6-2.4); Phosphorus, Blood 3.7 mg/dL (2.5-4.9); Potassium, Blood 4.6 mmol/L (3.5-5.5); Sodium, Blood 126 mmol/L (136-145)
--- NOTE | 2024-11-24 06:26 | NUR ---
SHIFT SUMMARY PATIENT IS ALERT AND ORIENTED X4. SLEPT MOST THE NIGHT. MEDICATED FOR BACK PAIN ONCE THIS SHIFT. SP02 100% ON RA, DENIES SOB. HR SR 80s, BP STABLE, MAP >65 MOST THE NIGHT. BLADDER SCANS SHOW >400 MLS THROUGH THE NIGHT, PATIENT STATES NO URGE TO VOID SO FAR. ATTENDS IN PLACE. INSULING DRIP REMAINS INFUSING WITH D10 AT 25 MLS/HRS. PATIENT ABLE TO REPOSITION SELF. CALL LIGHT IN REACH
[2024-11-24 09:37] LABS: Bun/Creatinine Ratio 14.6 (12.0-20.0); Calcium, Blood 8.3 mg/dL (8.5-10.1); Creatinine, Blood 2.47 mg/dL (0.40-1.00); Magnesium, Blood 1.6 mg/dL (1.6-2.4); Phosphorus, Blood 4.1 mg/dL (2.5-4.9); Potassium, Blood 4.7 mmol/L (3.5-5.5)
[2024-11-24] MEDS ORDERED: NS 250 ML IV PRN (12:10)
[2024-11-24 12:44] LABS: Creatinine, Blood 2.58 mg/dL (0.40-1.00)
[2024-11-24 12:51] LABS: Bun/Creatinine Ratio 13.7 (12.0-20.0); Calcium, Blood 7.9 mg/dL (8.5-10.1); Creatinine, Blood 2.56 mg/dL (0.40-1.00); Magnesium, Blood 1.9 mg/dL (1.6-2.4); Phosphorus, Blood 4.3 mg/dL (2.5-4.9); Potassium, Blood 4.8 mmol/L (3.5-5.5)
[2024-11-24] MEDS ORDERED: Albumin (Human) 25gm/100ml 100 ML IV PRN (15:00)
[2024-11-24] MEDS ORDERED: Digoxin 0.25 MG/ML 2ML Amp IV ONE (16:20)
--- NOTE | 2024-11-24 17:46 | NUR ---
Event note. Pt did not tolerate dialysis well today, rapid hr noted, pt c/o dizzyness and nausea, pt pale and diaphoretic. Dr. Olsen notified, cardiology consulted and dialysis terminated. 12 lead showed afib with RVR. After dialysis was completed pt became very pale, distraught and tachycardic up into the 180s. Physician called to bedside as well as cardiology. Pt given digoxin and started on amiodarone with good effect. 1 unit of blood started for low H&H. Currently resting quietly, HR sinus at 76 bpm.
--- NOTE | 2024-11-24 18:23 | NUR ---
Summary. Pt more confused throughout shift. Attempted dialysis without success, see chart. Cardiology on case after events during dialysis, see note. Pt up to chair with OT this am, dizzy but able to ambulate with walker and standby assist. See chart for further details.
[2024-11-24 20:22] LABS: Magnesium, Blood 1.7 mg/dL (1.6-2.4)
[2024-11-24 20:23] LABS: Bun/Creatinine Ratio 14.9 (12.0-20.0); Calcium, Blood 8.1 mg/dL (8.5-10.1); Creatinine, Blood 1.81 mg/dL (0.40-1.00); Phosphorus, Blood 4.9 mg/dL (2.5-4.9); Potassium, Blood 5.6 mmol/L (3.5-5.5)
--- NOTE | 2024-11-24 21:17 | NUR ---
ASSUMED CARE AT 1900 PATIENT IS LETHARGIC, ORIENTED X2-3, REPEATS SELF AND SLOW TO RESPOND BUT KNOWS SELF, PLACE AND YEAR. SP02 100% ON RA, DENIES SOB, LS CLEAR. HR SR 80s, BP STABLE, AMIO INFUSING. BLOOD GLUCOSE 268 AT START OF SHIFT, ANION GAP INCREASING, RESTARTED INSULIN DRIP. BLADDER SCAN DONE AT START OF SHIFT >600, PATIENT ATTEMPTED TO USE BEDPAN, UNABLE TO VOID. STRAIGHT CATH DONE, 650 MLS OUT. PATIENT REPOSITIONED AND CALL LIGHT IN REACH.
[2024-11-25] VITALS (63 sets, daily range): BP systolic 68–113; BP diastolic 33–85
[2024-11-25 00:18] LABS: Bun/Creatinine Ratio 14.9 (12.0-20.0); Calcium, Blood 7.9 mg/dL (8.5-10.1); Creatinine, Blood 2.02 mg/dL (0.40-1.00); Phosphorus, Blood 4.3 mg/dL (2.5-4.9); Potassium, Blood 4.3 mmol/L (3.5-5.5)
[2024-11-25 04:06] LABS: Hemoglobin 8.3 g/dL (11.5-16.0)
[2024-11-25 04:25] LABS: Albumin, Blood 2.2 g/dL (3.4-5.0); Anion Gap 13 mmol/L (3-11); Blood Urea Nitrogen 30 mg/dL (8-24); Bun/Creatinine Ratio 14.2 (12.0-20.0); CO2, Blood 27 mmol/L (21-32); Calcium, Blood 7.8 mg/dL (8.5-10.1); Chloride, Blood 92 mmol/L (98-108); Creatinine, Blood 2.11 mg/dL (0.40-1.00); Glomerular Filtration Rate 26 (60-); Glucose, Blood 204 mg/dL (70-99); Phosphorus, Blood 4.7 mg/dL (2.5-4.9); Potassium, Blood 4.5 mmol/L (3.5-5.5); Sodium, Blood 127 mmol/L (136-145)
--- NOTE | 2024-11-25 06:00 | NUR ---
SHIFT SUMMARY PATIENT MORE ALERT AND ORIENTED THROUGH THE NIGHT, STILL SOME CONFUSION AT TIMES BUT ANSWERING QUESTIONS APPROPRIETLY. SP02 100% ON RA, DENIES SOB. HR SR 70s, AMIO DRIP REMAINS INFUSING. BP STABLE, DENIES CP/PRESSURE. INSULIN AND D10 INFUSING. STRAIGHT CATH DONE ONCE THIS SHIFT, LAST BLADDER SCAN <300. ASSISTANCE WITH REPOSITIONING NEEDED. CALL LIGHT IN REACH
[2024-11-25 08:36] LABS: Bun/Creatinine Ratio 14.2 (12.0-20.0); Calcium, Blood 7.9 mg/dL (8.5-10.1); Creatinine, Blood 2.19 mg/dL (0.40-1.00); Phosphorus, Blood 4.9 mg/dL (2.5-4.9); Potassium, Blood 4.5 mmol/L (3.5-5.5)
[2024-11-25] MEDS ORDERED: Insulin Glargine-Yfgn 100 Unit/mL 3 ML SYR SC SCH (09:19)
[2024-11-25] MEDS ORDERED: Insulin Human Lispro 100 Units/ML 3ML Syringe SC SCH (11:30)
[2024-11-25] MEDS ORDERED: Albumin (Human) 25gm/100ml 100 ML IV ONE (12:50)
[2024-11-25 13:28] LABS: Bun/Creatinine Ratio 14.9 (12.0-20.0); Calcium, Blood 7.9 mg/dL (8.5-10.1); Creatinine, Blood 2.21 mg/dL (0.40-1.00); Magnesium, Blood 1.8 mg/dL (1.6-2.4); Phosphorus, Blood 5.2 mg/dL (2.5-4.9); Potassium, Blood 5.4 mmol/L (3.5-5.5)
[2024-11-25] MEDS ORDERED: Midodrine 5 MG Tab PO SCH (14:00)
[2024-11-25 16:15] LABS: Magnesium, Blood 1.9 mg/dL (1.6-2.4)
[2024-11-25 16:16] LABS: Bun/Creatinine Ratio 13.4 (12.0-20.0); Calcium, Blood 7.7 mg/dL (8.5-10.1); Creatinine, Blood 1.64 mg/dL (0.40-1.00); Potassium, Blood 4.2 mmol/L (3.5-5.5)
[2024-11-25] MEDS ORDERED: Dextrose 50% 50 ML Vial IV ONE (16:45)
--- NOTE | 2024-11-25 17:08 | NUR ---
Event. Pt CBG 68 at 1630, Dr. Willett contacted, order for 1 amp D50 obtained. Entered room and administered d50, approximately 1 minute later, while talking to patient she became completely unresponsive and slumped over to left side of bed. patient account liaison called to bedside. When attempting to arouse pt, some upper extremity ridgitity noted along with with moaning. Pupils fixed forward and sluggish. Pt became hypotensive and bradycardic during this time. After approximately 30-45 seconds pt began to respond to verbal stimuli and follow commands. Physician contacted and notified of event, stated to continue to monitor and call if any further episodes noted. Pt now responding to questions, has no recollection of event.
--- NOTE | 2024-11-25 18:44 | NUR ---
Summary. Pt rested in bed today. Dialysis completed this afternoon. Pt transitioned off insulin drip today, low cbg this afternoon with event, see note. Pt continuing to be hypotensive, physician contacted, orders obtained for fluid bolus and early midodrine administration, see emar. See chart for further details.
[2024-11-25] MEDS ORDERED: NS 500 ML IV ONE (18:50)
--- NOTE | 2024-11-25 22:26 | NUR ---
ASSUMED CARE AT APPROX 1900, PATIENT WAS ALERT AND ORIENTED X4, RESTLESS AND STATING SHE DID NOT FEEL WELL. HR 40s-50s AND BP MAP IN THE 50s. EXECUTIVE OFFICER [employer] TEAM CALLED DR. ALEXANDER AND ORDERS TO STOP AMIODARONE DRIP. LEVOPHED STARTED. SP02 100% ON 2L VIA NC. BLOOD GLUCOSE CHECKED 143. PATIENT STATED SHE NEEDED TO HAVE A BOWEL MOVEMENT, PLACED ON BEDPAN AND BECAME DIZZY AND NOT FEELING WELL. PATIENT BECAME MORE BRADYCARDIC, AND AGONAL BREATHING. UNABLE TO FEEL A PULSE AND CPR STARTED AT 2001. SEE CODE BLUE SHEET FOR MORE INFORMATION. PATIENTED SON TO BEDSIDE AND PATIENT TOD 2030. DR. CHAIDEZ WAS AT BEDSIDE, DR. CORBIN NOTIFIED WELL DR. FLORENCE AND DR. ALEXANDER
[2024-11-25] MEDS ORDERED: Magnesium Sulfate 500 MG / ML 2ML Vial IV ONE (23:25)
[2024-11-25] MEDS ORDERED: Atropine Sulfate 0.1 MG/ML 10ML SYR IV ONE (23:25)
[2024-11-25] MEDS ORDERED: Sodium Bicarb 8.4% 50 mEq Syringe IV ONE (23:25)
[2024-11-25] MEDS ORDERED: Calcium Chloride 10% 100 MG/ML 10ML Vial IV ONE (23:25)
[2024-11-26] MEDS ORDERED: Insulin Glargine-Yfgn 100 Unit/mL 3 ML SYR SC SCH (09:00)
== END 2024-11-25 20:31 | DRG 637 ==
LOC: ER 19:37 → ICUE 11-21 00:18 → UNDODEPER 11-21 01:56 → ICUE 11-25 20:31
PROVIDERS: Internal Medicine Nephrology; Student in an Organized Health Care Education/Training Program; ADMIT Student in an Organized Health Care Education/Training Program
PROC: 5A1D70Z Performance of Urinary Filtration, Intermittent, Less than 6 Hours Per Day (ICD-10-PCS; principal; 2024-11-21)
PROC: 30233J1 Transfusion of Nonautologous Serum Albumin into Peripheral Vein, Percutaneous Approach (ICD-10-PCS; 2024-11-21)
PROC: 3E033XZ Introduction of Vasopressor into Peripheral Vein, Percutaneous Approach (ICD-10-PCS; 2024-11-23)
PROC: 3E03329 Introduction of Other Anti-infective into Peripheral Vein, Percutaneous Approach (ICD-10-PCS; 2024-11-23)
PROC: 30233N1 Transfusion of Nonautologous Red Blood Cells into Peripheral Vein, Percutaneous Approach (ICD-10-PCS; 2024-11-24)
PROC: 5A12012 Performance of Cardiac Output, Single, Manual (ICD-10-PCS; 2024-11-25)
DX: E11.10 Type 2 diabetes mellitus with ketoacidosis without coma (principal); G92.8 Other toxic encephalopathy; N18.6 End stage renal disease; I21.09 ST elevation (STEMI) myocardial infarction involving other coronary artery of anterior wall; I13.2 Hypertensive heart and chronic kidney disease with heart failure and with stage 5 chronic kidney disease, or end stage renal disease; E87.1 Hypo-osmolality and hyponatremia; N39.0 Urinary tract infection, site not specified; I50.40 Unspecified combined systolic (congestive) and diastolic (congestive) heart failure; R65.10 Systemic inflammatory response syndrome (SIRS) of non-infectious origin without acute organ dysfunction; E87.3 Alkalosis; M79.7 Fibromyalgia; M54.9 Dorsalgia, unspecified; G89.29 Other chronic pain; M19.90 Unspecified osteoarthritis, unspecified site; I25.10 Atherosclerotic heart disease of native coronary artery without angina pectoris; E11.51 Type 2 diabetes mellitus with diabetic peripheral angiopathy without gangrene; E78.5 Hyperlipidemia, unspecified; D63.1 Anemia in chronic kidney disease; I48.0 Paroxysmal atrial fibrillation; Z99.2 Dependence on renal dialysis; E83.42 Hypomagnesemia; K21.9 Gastro-esophageal reflux disease without esophagitis; E83.39 Other disorders of phosphorus metabolism; J44.9 Chronic obstructive pulmonary disease, unspecified; F41.9 Anxiety disorder, unspecified; F32.A Depression, unspecified; I25.5 Ischemic cardiomyopathy; E11.22 Type 2 diabetes mellitus with diabetic chronic kidney disease; Z79.82 Long term (current) use of aspirin; Z88.2 Allergy status to sulfonamides; Z88.0 Allergy status to penicillin; Z79.51 Long term (current) use of inhaled steroids; Z79.4 Long term (current) use of insulin; Z79.891 Long term (current) use of opiate analgesic; Z95.2 Presence of prosthetic heart valve; Z82.71 Family history of polycystic kidney; Z79.02 Long term (current) use of antithrombotics/antiplatelets; Z79.84 Long term (current) use of oral hypoglycemic drugs
CPT/HCPCS: 31500; 36415; 36430; 51701; 51702; 70450; 71045; 80048; 80053; 80069; 81001; 82010; 82565; 82803; 82947; 83735; 83930; 84100; 84484; 85014; 85018; 85025; 86850; 86900; 86901; 86923; 87077; 87086; 87186; 87428-QW; 92950; 93005; 93010; 94002; 94762; 97110; 97162; 97165; 97530; 99285-25; A9270; C1751; J0282; J0461; J0696; J0881; J1160; J1644; J1815; J3475; J3480; J7040; J7042; J7050; J7060; J7120; J7799; P9016; P9047